=== PATIENT | female | born 1980 | race African-American/Black ===

== ENCOUNTER 2025-02-17 23:05 | Emergency (ER) | payer SELFPAY ==
[2025-02-17 23:13] VITALS: BP 154/91
--- NOTE | 2025-02-18 00:37 | ED.MUSCINJ ---
HPI-Injury
General
Chief Complaint: Musculo-Skeletal Complaint
Source: patient
Time Seen by Provider: 02/18/25 00:19
Nursing documentation reviewed up to this point in time: agreed with
History of Present Illness-Injury
Initial Injury comments:
44-year-old female works at [employer] had her left middle finger slammed in a metal door. She did note a laceration to the tip of her finger. States that her tetanus status is up-to-date. Denies any other injury.
Review of Systems
Review of Systems
All Other Systems: ROS reviewed and negative except as documented in HPI and ROS
Musculoskeletal: Reports joint pain and muscle pain
Psychiatric: Reports anxiety
Musculoskeletal Injury Exam
Musculoskeletal Injury Exam
Left Third Finger:
Pain with Movement?: None
Tender to palpation?: Moderate
Soft tissue swelling?: Mild
External deformity and angulation?: None
Joint effusion?: None
Contusion?: Mild
Hematoma-local bleeding into tissue?: Mild
Strain- Sprain- Tear (Connective tissue injury)?: Mild
Distal skin color and temperature: normal-warm & good color
Capillary Refill: normal
Phy Exam
General Physical Exam
General Presentation: well appearing and mild distress
General age: appears stated age
General Skin: warm and dry
General Habitus: normal
General Mental: alert
Pulmonary Exam
Pulmonary Exam: no respiratory distress and no cough
Neurological Exam
Neurological Exam: alert and oriented x3
Skin Exam
Skin Exam: normal color, warm/dry and laceration
Psychiatric Exam
Psychiatric Exam: normal mood/affect
Injury Course
Orders/Labs/Results
Orders:
Orders
02/17/25 23:18
Finger(s)/Thumb 2 View Lt [CR Finger(s)/thumb Min 2 Vw Lt] Urgent
Comment:
Reason For Exam: crushed tip of finger in a door, tip bleeding
Indicate Which Finger:: Middle Finger
Procedures
Laceration Closure
Left Third Finger:
Status of Wound: clean
Size of Wound in cm: 2
Description of Wound Edges: ragged
Preparation: cleaned with soap & water
Anesthesia: 1% Lidocaine
Revision/Debridement: minor revision
Wound exploration: explored to base- no FB
Skin Closure Material: 5-0 nylon
Number of sutures: 5
*Critical Care Note
Total Time (30-74mins, 75-104mins- exclusive of procedures): Not Applicable
ED Attending Note
-
Portions of this chart may have been created with voice recognition software.� Occasional wrong word or��sound alike� substitutions may have occurred due to the inherent limitations of voice recognition software.
Discharge Plan
Departure
Patient Disposition: Home (Routine Discharge)
Date of Disposition: 02/18/25
Time of Disposition: 01:01
Patient with high blood pressure during this ER visit?: Yes
Discharge Problem:
fingertip laceration
Instructions: Tdap vaccine, Wound care - ED discharge instructions, Laceration
Prescriptions:
New
cephalexin 500 mg capsule
500 mg PO BID 7 Days Qty: 14 0RF
Referrals:
Latia Osorio DO [Active] -
Chino Montano MD [Family Provider] -
Activity Restrictions/Additional Instructions:
Sutures can be removed in 5 to 7 days. You can return to the ER, follow-up with your family doctor, or go to urgent care today to have this done
Your tetanus was updated today
Thank You for choosing [facility].
It was a pleasure meeting you and taking part in your care. We hope for your continued healing and wellness.
Please read discharge instructions in their entirety. However, they are for general education and may not describe your exact diagnosis at discharge. Information on your ER visit and medical conditions were discussed with you along with appropriate
follow up information...
If indicated, please take your medications as instructed and indicated on discharge paperwork.
Please schedule a follow up appointment as directed. Call to schedule an appointment
Please return to the emergency department with ANY change in, persisting, or worsening of symptoms. If any of your symptoms do not improve, or persist, or become more severe within 6-12 hours, please return to the emergency department for further
care.
Please return to the emergency department if you develop a headache, neck pain/stiffness, fever greater than 100.4F, chest pain, shortness of breath, persistent nausea, vomiting, slurred speech, difficulty walking, numbness/tingling, weakness, signs
of infection or any other symptoms that are worrisome to you.
If you have any questions or concerns please do not hesitate to call the Hospital at or E-mail me directly at [email or web address]
Interventions
Interventions:
*Risk Screen - Suicide Last Done: 02/17/25 23:13
Discharge Date and Time
Print Language: ARABIC
[2025-02-18] MEDS: KEFLEX 500 MG PO (01:08)
[2025-02-18] MEDS: ADACEL 0.5 ML IM (01:09)
== END 2025-02-18 01:14 | disposition home or self-care (01) ==
LOC: EMR 23:05
PROVIDERS: EMERGENCY PHYSICIAN Student in an Organized Health Care Education/Training Program; FAMILY PHYSICIAN Family Medicine
DX: S61.213A Laceration without foreign body of left middle finger without damage to nail, initial encounter (principal); W23.0XXA Caught, crushed, jammed, or pinched between moving objects, initial encounter; Z23 Encounter for immunization
CPT/HCPCS: 99283; 12001; 90471; 73140; 90715